=== PATIENT | female | born 1950 | race Caucasian/White ===

== ENCOUNTER 2016-11-08 07:20 | Outpatient (CLI) | payer MEDICARE, MEDICAID | END 2016-11-08 07:21 | disposition home or self-care (01) | DX: R10.13 Epigastric pain (principal) ==

== ENCOUNTER 2016-11-08 08:22 | Emergency (ER) | payer MEDICARE, MEDICAID ==
[2016-11-08] MEDS ORDERED: IBUPROFEN 600 MG TABLET PO STA (09:43)
[2016-11-08] MEDS ORDERED: ACETAMINOPHEN 325 MG TABLET PO STA (09:43)
[2016-11-08] MEDS ORDERED: ACETAMINOPHEN 325 MG TABLET PO ONE (09:51)
[2016-11-08] MEDS ORDERED: IBUPROFEN 600 MG TABLET PO ONE (09:51)
== END 2016-11-08 10:15 | disposition home or self-care (01) ==
DX: S46.011A Strain of muscle(s) and tendon(s) of the rotator cuff of right shoulder, initial encounter (principal); X50.0XXA Overexertion from strenuous movement or load, initial encounter; Y93.E9 Activity, other interior property and clothing maintenance; Y92.018 Other place in single-family (private) house as the place of occurrence of the external cause; R10.13 Epigastric pain; I10 Essential (primary) hypertension; E78.00 Pure hypercholesterolemia, unspecified; E11.9 Type 2 diabetes mellitus without complications; Z79.4 Long term (current) use of insulin; M19.90 Unspecified osteoarthritis, unspecified site; Z79.82 Long term (current) use of aspirin
CPT/HCPCS: 73030; 76700; 99283; A9270

== ENCOUNTER 2017-02-03 16:13 | Emergency (ER) | payer MEDICARE, MEDICAID ==
--- NOTE | 2017-02-03 16:36 | ED Physician Documentation ---
History of Present Illness - Stated complaint Stated Complaint: SOA - Chief complaint Chief Complaint: General - History obtained from History obtained from: Patient - History of Present Illness Timing: Today (66-year-old woman without history of DVTs/PE, or heart or lung disease had sudden onset right infrascapular pain while watching TV 2 hours ago associated sometime later with shortness of breath but now mostly better. There was no primary chest pain. Had a mild cough this morning. No pedal edema or calf pain. No recent travel.) Review of Systems Constitutional: denies: Fever, Chills Nose: reports: Rhinorrhea / runny nose, Congestion, Sinus pressure / pain Throat: denies: Dental pain / toothache, Oral lesions / sores, Sore throat Cardiac: denies: Chest pain / pressure, Palpitations, Pedal edema, Calf pain Respiratory: denies: Hemoptysis, Wheezing GI: denies: Abdominal Pain PD PAST MEDICAL HISTORY - Past Medical History Cardiovascular: Hypertension, High cholesterol Endocrine/Autoimmune: Type 2 diabetes Psych: Depression, Bipolar disorder Musculoskeletal: Osteoarthritis, Chronic back pain - Past Surgical History 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 - Present Medications Home Medications: Ambulatory Orders Medication Instructions Recorded Confirmed glipiZIDE [Glucotrol] 5 mg PO DAILY 11/10/15 02/03/17 Aspirin [Aspir-Low] 81 mg PO DAILY 11/08/16 02/03/17 Insulin Regular, Human [Humulin R] 30 units SQ DAILY 11/08/16 02/03/17 Pseudoephedrine [Sudafed] 30 mg PO DAILY 11/08/16 02/03/17 Mometasone Furoate [Nasonex] 1 spray NS BID #1 spray.pump 02/03/17 - Allergies Allergies/Adverse Reactions: Allergies Allergy/AdvReac Type Severity Reaction Status Date / Time codeine [Codeine] Allergy Nausea Verified 11/08/16 08:37 Sulfa (Sulfonamide Allergy Hives Verified 11/08/16 08:37 Antibiotics) - Social History Does the pt smoke?: No Smoking Status: Never smoker Does the pt drink ETOH?: No Does the pt have substance abuse?: Yes - Immunizations Immunizations are current?: Yes - POLST Patient has POLST: No PD ED PE NORMAL - Vitals Vital signs reviewed: Yes - General General: Alert and oriented X 3, No acute distress - HEENT HEENT: PERRL, EOMI - Neck Neck: Supple, no meningeal sign, No bony TTP - Cardiac Cardiac: RRR, No murmur - Respiratory Respiratory: No respiratory distress, Clear bilaterally, Other (Some right infrascapular muscular tenderness) - Abdomen Abdomen: Soft, Non tender - Extremities Extremities: No edema, No calf tenderness / cord, Other (Atrophic left calf from polio) - Neuro Neuro: Alert and oriented X 3, Normal speech - Psych Psych: Normal mood, Normal affect Results - Vitals Vitals: Vital Signs - 24 hr 02/03/17 16:20 Temperature 36.2 C L Heart Rate 70 Respiratory 18 Rate Blood Pressure 141/69 H O2 Saturation 100 Oxygen O2 Source Room air - EKG (time done) 1649 Rate: Rate (enter#) (58) Rhythm: NSR [place]: Normal Intervals: Normal CA QRS: Normal Ischemia: Normal ST segments Computer interpretation: Agree with computer - Labs Labs: Laboratory Tests 02/03/17 02/03/17 17:20 17:20 D-Dimer < 200.0 L Troponin I < 0.04 - Rads (name of study) 2v chest Radiology: EMP read contemporaneously (NAD) PD MEDICAL DECISION MAKING - ED course ED course: She presents with right infrascapular pain with associated shortness of breath, there is no evidence of cardiac etiology or DVT/PE. D-dimer and troponin are negative. She had multiple ancillary complaints including chronic insomnia, nasal congestion. Departure - Departure Disposition: 01 Home, Self Care Clinical Impression: Back pain Qualifiers: Back pain location: thoracic back pain Chronicity: acute Back pain laterality: right Qualified Code(s): M54.6 - Pain in thoracic spine Dyspnea Qualifiers: Dyspnea type: shortness of breath Qualified Code(s): R06.02 - Shortness of breath Condition: Good Record reviewed to determine appropriate education?: Yes Instructions: ED Dyspnea Shortness of Breath Prescriptions: Mometasone Furoate [Nasonex] 1 spray NS BID #1 spray.pump Comments: Call your doctor to arrange a follow up appointment. Make the next available appointment. In the interim return anytime if worse or if new symptoms develop. Your blood pressure was elevated today on check in to the emergency department. This does not mean that you have hypertension, it is a common phenomenon to check into the emergency department and have elevated blood pressure. I recommend that you see your primary care physician within the week to have it rechecked when you're feeling better.
--- NOTE | 2017-02-03 17:30 | XRAY Preliminary Report ---
Exam: XR Chest 2 View PA/LAT IMPRESSION: No acute intrathoracic plain film abnormality. [facility] SITE ID: [id number]
--- NOTE | 2017-02-03 17:32 | XRAY Report ---
EXAM: CHEST RADIOGRAPHY EXAM DATE: 02/03/2017 05:00 PM. CLINICAL HISTORY: Back pain. COMPARISON: None. TECHNIQUE: 2 views. FINDINGS: Lungs/Pleura: No focal opacities evident. Stable calcified nodule in the right posterior chest. No pl eural effusion. No pneumothorax. Normal volumes. Mediastinum: Heart and mediastinal contours are unremarkable. Other: None. IMPRESSION: No acute intrathoracic plain film abnormality. [facility] Referring Provider Line: [phone] SITE ID: [id number]
[2017-02-03 18:12] VITALS: BP 139/82
== END 2017-02-03 18:11 | disposition home or self-care (01) ==
LOC: ED 16:13
DX: M54.6 Pain in thoracic spine (principal); R06.02 Shortness of breath; I10 Essential (primary) hypertension; E78.00 Pure hypercholesterolemia, unspecified; E11.9 Type 2 diabetes mellitus without complications; Z79.4 Long term (current) use of insulin; M19.90 Unspecified osteoarthritis, unspecified site; Z79.82 Long term (current) use of aspirin
CPT/HCPCS: 36415; 71020; 84484; 85379; 93005; 93010; 99283; 99284

== ENCOUNTER 2017-03-28 08:12 | Outpatient (CLI) | payer MEDICARE, MEDICAID ==
--- NOTE | 2017-03-28 16:11 | MRI Report ---
EXAM: RIGHT SHOULDER MRI WITHOUT CONTRAST EXAM DATE: 03/28/2017 08:25 AM. CLINICAL HISTORY: Lifting a heavy bag. Injured right shoulder. Decreased range of motion. COMPARISON: X-ray 11/08/2016. TECHNIQUE: Multiplanar, multisequence T1-weighted and fluid-sensitive sequences of the shoulder witho ut contrast. Other: None. FINDINGS: Acromioclavicular Region: The acromion is type III The acromioclavicular joint is unremarkable. No s ubacromial/subdeltoid bursal fluid. Glenohumeral Region: No subluxation. No effusion or loose bodies. The articular cartilage is unremark able. Bone Marrow: No fracture, marrow edema or bone lesions. Labrum: The labrum is unremarkable on this nonarthrographic study. Musculature/Rotator Cuff: There is thickening and increased T2 signal in the supraspinatus tendon con sistent with tendinosis. There is an intrasubstance tear of the insertion, involving less than 50% of the thickness of the tendon. There is mild infraspinatus tendinosis. There is minimal subscapularis tendinosis. No edema or fatty atrophy. Biceps Tendon: The long head of the biceps tendon and biceps juaquin are intact. Other: The subcutaneous tissues are unremarkable. IMPRESSION: 1. Type III acromion. 2. Tendinosis and intrasubstance tearing of supraspinatus. Mild infraspinatus and subscapularis tendi nosis. [facility] MUSCULOSKELETAL RADIOLOGY SECTION Referring Provider Line: [phone] SITE ID: [id number]
== END 2017-03-28 08:13 | disposition home or self-care (01) ==
LOC: DI 08:12
PROVIDERS: ATTEND Orthopaedic Surgery
DX: M75.101 Unspecified rotator cuff tear or rupture of right shoulder, not specified as traumatic (principal); M75.81 Other shoulder lesions, right shoulder

== ENCOUNTER 2017-06-28 16:01 | Outpatient (CLI) | payer MEDICARE, MEDICAID | END 2017-06-28 16:02 | disposition home or self-care (01) | LOC: LAB 16:01 | PROVIDERS: ATTEND Nurse Practitioner | DX: E11.65 Type 2 diabetes mellitus with hyperglycemia (principal); Z79.4 Long term (current) use of insulin | CPT/HCPCS: 82043; 82570 ==

== ENCOUNTER 2017-06-28 16:08 | Outpatient (CLI) | payer MEDICARE, MEDICAID ==
--- NOTE | 2017-07-02 16:26 | Mammography Report ---
DIGITAL SCREENING MAMMOGRAM: 06/28/2017 CLINICAL INDICATION: A 66-year-old with family history of breast cancer for screening. COMPARISON: 10/2012 TECHNIQUE: Routine CC and MLO projections were obtained of the breasts. FINDINGS: The breasts demonstrate scattered fibroglandular densities bilaterally. Coarse and puncta te, typically benign calcifications are present. No suspicious masses, clustered microcalcifications , or regions of architectural distortion are identified. IMPRESSION: BENIGN FINDINGS. RECOMMENDATION: Routine annual screening unless otherwise clinically indicated. BIRADS CATEGORY 2 - BENIGN FINDINGS. STANDARD QUALIFYING STATEMENTS 1. This examination was reviewed with the aid of Computer-Aided Detection (CAD). 2. A negative or benign imaging report should not delay biopsy if clinically suspicious findings are present. Consider surgical consultation if warranted. More than 5% of cancers are not identified by i maging. 3. Dense breasts may obscure an underlying neoplasm. JOB #: [id number] EXT JOB #:[id number]
== END 2017-06-28 16:09 | disposition home or self-care (01) ==
LOC: DI 16:08
PROVIDERS: ATTEND Family Medicine
DX: Z12.31 Encounter for screening mammogram for malignant neoplasm of breast (principal); Z80.3 Family history of malignant neoplasm of breast
CPT/HCPCS: 77067

== ENCOUNTER 2018-02-28 15:02 | Emergency (ER) | payer MEDICARE, MEDICAID ==
[2018-02-28] MEDS ORDERED: oxyCOD/ACETAMIN 5 MG/325 MG TABLET PO STA (15:31)
--- NOTE | 2018-02-28 15:31 | ED Physician Documentation ---
History of Present Illness - Stated complaint Stated Complaint: R AM PX/POST SURG - Chief complaint Chief Complaint: Ext Problem - History obtained from History obtained from: Patient, Family - History of Present Illness Timing: Chronic Pain level max: 10 Pain level now: 10 Improved by: nothing Worsened by: movement, palpation - Additonal information Additional information: Patient is a 67-year-old female who had an arthroscopic surgery on her right shoulder for chronic pain on February 20. She was prescribed 30 hydrocodone pills but ran out 4 days ago. Now having increasing pain. States she called her orthopedist today but he was unavailable and was told to come here for a medication refill by his office staff. Review of Systems Ten Systems: 10 systems reviewed and negative Constitutional: denies: Fever, Chills Ears: denies: Ear pain Nose: denies: Rhinorrhea / runny nose, Congestion Throat: denies: Sore throat Cardiac: denies: Chest pain / pressure Respiratory: denies: Cough GI: denies: Nausea, Vomiting, Diarrhea Skin: denies: Rash Musculoskeletal: denies: Neck pain, Back pain Neurologic: denies: Headache PD PAST MEDICAL HISTORY - Past Medical History Past Medical History: Yes Cardiovascular: Hypertension, High cholesterol Endocrine/Autoimmune: Type 2 diabetes Psych: Depression, Bipolar disorder Musculoskeletal: Osteoarthritis, Chronic back pain - Past Surgical History Past Surgical History: Yes 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 - Present Medications Home Medications: Ambulatory Orders Medication Instructions Recorded Confirmed glipiZIDE [Glucotrol] 5 mg PO DAILY 11/10/15 02/03/17 Aspirin [Aspir-Low] 81 mg PO DAILY 11/08/16 02/03/17 Insulin Regular, Human [Humulin R] 30 units SQ DAILY 11/08/16 02/03/17 Pseudoephedrine [Sudafed] 30 mg PO DAILY 11/08/16 02/03/17 Mometasone Furoate [Nasonex] 1 spray NS BID #1 spray.pump 02/03/17 Hydrocodone/Acetaminophen 1 - 2 each PO Q6H PRN #30 tablet 02/28/18 [Hydrocodon-Acetaminophen 5-325] Ondansetron Odt [Zofran] 4 mg TL Q6H PRN #10 tablet 02/28/18 - Allergies Allergies/Adverse Reactions: Allergies Allergy/AdvReac Type Severity Reaction Status Date / Time codeine [Codeine] Allergy Nausea Verified 02/28/18 15:12 Sulfa (Sulfonamide Allergy Hives Verified 02/28/18 15:12 Antibiotics) - Social History Does the pt smoke?: No Smoking Status: Never smoker Does the pt drink ETOH?: No Does the pt have substance abuse?: Yes - Immunizations Immunizations are current?: Yes - POLST Patient has POLST: No PD ED PE NORMAL - Vitals Vital signs reviewed: Yes - General General: Alert and oriented X 3, No acute distress - HEENT HEENT: Moist mucous membranes - Neck Neck: Supple, no meningeal sign - Cardiac Cardiac: RRR, Strong equal pulses - Respiratory Respiratory: No respiratory distress, Clear bilaterally - Abdomen Abdomen: Soft, Non tender, Non distended - Derm Derm: Warm and dry - Extremities Extremities: Other (R shoulder - well healing incisions. no signs of infection.) - Neuro Neuro: Alert and oriented X 3 - Psych Psych: Normal mood, Normal affect Results - Vitals Vitals: Oxygen O2 Source Room air PD MEDICAL DECISION MAKING - ED course Complexity details: considered differential, d/w patient, d/w consultant technology ED course: Patient is a 67-year-old female with continued right shoulder pain after her arthroscopic surgery. I contacted her orthopedist, Dr. Kaur and spoke with his PA who recommends that we refill her pain medications at this time, also recommend that she continue her sling and follow-up as scheduled. She can call the office of her pain is not controlled. Patient counseled regarding signs and symptoms for which I believe and urgent re-evaluation would be necessary. Patient with good understanding of and agreement to plan and is comfortable going home at this time This document was made in part using voice recognition software. While efforts are made to proofread this document, sound alike and grammatical errors may occur. - Sepsis Event Vital Signs: Oxygen O2 Source Room air Departure - Departure Disposition: Home, Self Care Clinical Impression: Post-operative pain Condition: Good Instructions: ED Post Op Pain Follow-Up: Stephanie Lal MD [Primary Care Provider] - Within 1 week BLAIRE KAUR [Physician No Access] - Within 1 week Prescriptions: Hydrocodone/Acetaminophen [Hydrocodon-Acetaminophen 5-325] 1 - 2 each PO Q6H PRN #30 tablet PRN Reason: pain Ondansetron Odt [Zofran] 4 mg TL Q6H PRN #10 tablet PRN Reason: Nausea / Vomiting Comments: Return if you worsen. Do not drink alcohol or drive while on narcotic pain medicine. Note that many narcotic pain relievers also contain tylenol/acetaminophen. Please ensure that your total dose of acetaminophen from all sources does not exceed 3 grams (3000mg) per day. You may constipated on this medication, take a stool softener such as "Colace" twice a day while you are on it. Also recommend a oxtr-tsw-kmeifgn laxative such as senna or MiraLAX any day that you do not have a bowel movement. If you received narcotic pain medication in the emergency department, do not drive or operate machinery for the next [address] I spoke with Dr. Kaur's PA today. Discharge Date/Time: 02/28/18 16:26
[2018-02-28 16:19] VITALS: BP 152/79
== END 2018-02-28 16:26 | disposition home or self-care (01) ==
LOC: ED 15:02
DX: G89.18 Other acute postprocedural pain (principal); M79.601 Pain in right arm; I10 Essential (primary) hypertension; Z79.4 Long term (current) use of insulin; E11.9 Type 2 diabetes mellitus without complications; Z79.82 Long term (current) use of aspirin
CPT/HCPCS: 99283; A9270

== ENCOUNTER 2018-03-08 20:01 | Emergency (ER) | payer MEDICARE, MEDICAID ==
[2018-03-08] MEDS ORDERED: LORazepam 0.5 MG TABLET PO STA (20:48)
--- NOTE | 2018-03-08 20:51 | ED Physician Documentation ---
PD HPI SKIN - Stated complaint Stated Complaint: SOA/RASH - Chief complaint Chief Complaint: Wound - History obtained from History obtained from: Patient - History of Present Illness Timing - onset: Other (She has been having a lot of shoulder problems and recently had surgery. It has been causing her anxiety because the surgery was moved up. She ran out of her Ativan, her last prescription was about a month ago and needs a refill. She says when she is under a lot of stress she gets rashes and itches it herself. 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 - Present Medications Home Medications: Ambulatory Orders Medication Instructions Recorded Confirmed glipiZIDE [Glucotrol] 5 mg PO DAILY 11/10/15 02/03/17 Aspirin [Aspir-Low] 81 mg PO DAILY 11/08/16 02/03/17 Insulin Regular, Human [Humulin R] 30 units SQ DAILY 11/08/16 02/03/17 Mometasone Furoate [Nasonex] 1 spray NS BID #1 spray.pump 02/03/17 Hydrocodone/Acetaminophen 1 - 2 each PO Q6H PRN #30 tablet 02/28/18 [Hydrocodon-Acetaminophen 5-325] Ondansetron Odt [Zofran] 4 mg TL Q6H PRN #10 tablet 02/28/18 Dulaglutide [Trulicity] SQ 03/08/18 LORazepam [Lorazepam] 1 mg PO 03/08/18 Lorazepam [Ativan] 1 mg PO TID PRN #15 tablet 03/08/18 - Allergies Allergies/Adverse Reactions: Allergies Allergy/AdvReac Type Severity Reaction Status Date / Time bee venom protein (honey bee) Allergy Anaphylaxis Verified 03/08/18 20:08 codeine [Codeine] Allergy Nausea Verified 02/28/18 15:12 Sulfa (Sulfonamide Allergy Hives Verified 02/28/18 15:12 Antibiotics) - Social History Does the pt smoke?: No Smoking Status: Never smoker Does the pt drink ETOH?: No Does the pt have substance abuse?: Yes - Immunizations Immunizations are current?: Yes - POLST Patient has POLST: No PD ED PE NORMAL - Vitals Vital signs reviewed: Yes - General General: Alert and oriented X 3, No acute distress - Derm Derm: Other (I really do not see a rash, there are some excoriated areas on the inner left thigh.) - Neuro Neuro: Alert and oriented X 3, Normal speech Results - Vitals Vitals: Vital Signs - 24 hr 03/08/18 20:04 Temperature 36.9 C Heart Rate 74 Respiratory 18 Rate Blood Pressure 166/66 H O2 Saturation 100 Oxygen O2 Source Room air PD MEDICAL DECISION MAKING - Sepsis Event Vital Signs: Vital Signs - 24 hr 03/08/18 20:04 Temperature 36.9 C Heart Rate 74 Respiratory 18 Rate Blood Pressure 166/66 H O2 Saturation 100 Oxygen O2 Source Room air Departure - Departure Disposition: 01 Home, Self Care Clinical Impression: Anxiety Condition: Good Record reviewed to determine appropriate education?: Yes Instructions: ED Stress React Prescriptions: Lorazepam [Ativan] 1 mg PO TID PRN #15 tablet PRN Reason: Anxiety
[2018-03-08 21:14] VITALS: BP 151/65
== END 2018-03-08 21:13 | disposition home or self-care (01) ==
LOC: ED 20:01
DX: F41.9 Anxiety disorder, unspecified (principal)
CPT/HCPCS: 99283; A9270

== ENCOUNTER 2018-03-14 00:24 | Outpatient (CLI) | payer MEDICARE, MEDICAID | END 2018-03-14 00:25 | disposition critical access hospital (66) | LOC: EMS 00:24 | PROVIDERS: ATTEND Surgery | DX: T43.591A Poisoning by other antipsychotics and neuroleptics, accidental (unintentional), initial encounter (principal); R42 Dizziness and giddiness; R11.2 Nausea with vomiting, unspecified; R53.83 Other fatigue | CPT/HCPCS: A0425; A0429; A0999 ==

== ENCOUNTER 2018-03-14 00:45 | Emergency (ER) | payer MEDICARE, MEDICAID ==
--- NOTE | 2018-03-14 03:03 | ED Physician Documentation ---
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 These symptoms started within 20-30 minutes of taking 3 doses of hydroxyzine, which she took for generalized pruritis. She says she had a rash earlier, though this has subsequently resolved. She says she has h/o hives when she is anxious or stressed. By the time of my evaluation, she reports that her dizziness and nausea have resolved Review of Systems Constitutional: denies: Fever Cardiac: reports: Reviewed and negative Respiratory: reports: Reviewed and negative GI: reports: Nausea (resolved), Vomiting (x 1). 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 - Present Medications Home Medications: Ambulatory Orders Medication Instructions Recorded Confirmed glipiZIDE [Glucotrol] 5 mg PO DAILY 11/10/15 02/03/17 Aspirin [Aspir-Low] 81 mg PO DAILY 11/08/16 02/03/17 Insulin Regular, Human [Humulin R] 30 units SQ DAILY 11/08/16 02/03/17 Mometasone Furoate [Nasonex] 1 spray NS BID #1 spray.pump 02/03/17 Hydrocodone/Acetaminophen 1 - 2 each PO Q6H PRN #30 tablet 02/28/18 [Hydrocodon-Acetaminophen 5-325] Ondansetron Odt [Zofran] 4 mg TL Q6H PRN #10 tablet 02/28/18 Dulaglutide [Trulicity] SQ 03/08/18 LORazepam [Lorazepam] 1 mg PO 03/08/18 Lorazepam [Ativan] 1 mg PO TID PRN #15 tablet 03/08/18 hydrOXYzine pamoate [Hydroxyzine 25 mg PO Q6HR PRN #20 capsule 03/14/18 Pamoate] - Allergies Allergies/Adverse Reactions: Allergies Allergy/AdvReac Type Severity Reaction Status Date / Time bee venom protein (honey bee) Allergy Anaphylaxis Verified 03/08/18 20:08 codeine [Codeine] Allergy Nausea Verified 02/28/18 15:12 Sulfa (Sulfonamide Allergy Hives Verified 02/28/18 15:12 Antibiotics) - Social History Does the pt smoke?: No Smoking Status: Never smoker Does the pt drink ETOH?: No Does the pt have substance abuse?: Yes - Immunizations Immunizations are current?: Yes - POLST Patient has POLST: No PD ED PE NORMAL - Vitals Vital signs reviewed: Yes - General General: Alert and oriented X 3, No acute distress, Well developed/nourished - HEENT HEENT: PERRL, EOMI, Moist mucous membranes - Cardiac Cardiac: RRR, No murmur - Respiratory Respiratory: No respiratory distress, Clear bilaterally - Abdomen Abdomen: Soft, Non tender - Derm Derm: Normal color, Warm and dry, No rash - Extremities Extremities: No edema - Neuro Neuro: Alert and oriented X 3, 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 she reports having a rash earlier this evening. she has a bottle of hydroxyzine, although I note three different medications in the bottle. She says these are all hydroxyzine. I used the imprints on the medications to check using a pill-identifying program, and these are all indeed hydroxyzine. Of the three shapes/colors, the one that matches the label on the prescription bottle indicates medication that over 2 years ago. She does not recall how recently she filled the other two forms of hydroxyzine, and thus I provided a new rx so there will be no confusion as to whether the hydroxyzine has been ineffective at the prescribed dose due to being outdated. I instructed her to not take more medication than as prescribed. - Sepsis Event Vital Signs: Oxygen O2 Source Room air Departure - Departure Disposition: 01 Home, Self Care Clinical Impression: Generalized pruritus Condition: Good Instructions: ED Symptoms No Dx Prescriptions: hydrOXYzine pamoate [Hydroxyzine Pamoate] 25 mg PO Q6HR PRN #20 capsule PRN Reason: Itching Comments: All three of the different-appearing tablets in the bottle you brought to the emergency department are the same medication (hydroxyzine). As we discussed, the label of the prescription indicates outdated medication. Since you do not know if the other two prescriptions are also outdated, I have written a new prescription for hydroxyzine. If you have another episode of an itchy rash, take the medication that I have prescribed instead of any that are in the bottle you brought to the emergency department. Outdated medication loses its effectiveness over time. Discharge Date/Time: 03/14/18 03:44
[2018-03-14 03:21] VITALS: BP 126/59
== END 2018-03-14 03:44 | disposition home or self-care (01) ==
LOC: EDUNIT# → EDBD → ED 00:45
DX: L29.9 Pruritus, unspecified (principal)
CPT/HCPCS: 99283

== ENCOUNTER 2018-03-19 15:28 | Emergency (ER) | payer MEDICARE, MEDICAID ==
[2018-03-19 17:11] LABS: BILIRUBIN,URINE NEGATIVE (NEGATIVE); GLUCOSE, URINE (UA) >=1000 mg/dL (NEGATIVE); KETONES,URINE (UA) TRACE mg/dL (NEGATIVE); LEUKOCYTE ESTERASE, URINE NEGATIVE (NEGATIVE); NITRITE,URINE NEGATIVE (NEGATIVE); OCCULT BLOOD,URINE NEGATIVE (NEGATIVE); PH,URINE 5.5 PH (5.0-7.5); PROTEIN,URINE NEGATIVE (NEGATIVE); UROBILINOGEN,URINE 0.2 (NORMAL) E.U./dL (NORMAL)
[2018-03-19 17:12] LABS: CLARITY,URINE CLEAR (CLEAR)
--- NOTE | 2018-03-19 17:22 | ED Physician Documentation ---
PD HPI CHEST PAIN - Stated complaint Stated Complaint: CHEST PRESSURE/DISCOMFORT - Chief complaint Chief Complaint: Cardiac - History obtained from History obtained from: Patient - History of Present Illness Timing - onset: How many weeks ago (2) Timing - onset during: Rest, Light activity. No: Exertion, Eating Timing - duration: Weeks (2) Timing - details: Gradual onset, Waxing and waning Quality: Tightness. No: Sharp, Stabbing Location: Substernal Radiation: Neck. No: Back, Abdominal Improved by: No: Rest Worsened by: No: Exertion, Inspiration, Movement Associated symptoms: Shortness of air, Feeling faint / dizzy, General Weakness. No: Nausea, Vomiting, Palpitations Similar symptoms before: Has not had sx before Recently seen: Not recently seen Review of Systems Constitutional: denies: Fever, Chills, Myalgias Nose: denies: Rhinorrhea / runny nose, Congestion Throat: denies: Sore throat Cardiac: reports: Chest pain / pressure. denies: Palpitations, Pedal edema, Calf pain Respiratory: reports: Dyspnea, Cough. denies: Wheezing GI: denies: Abdominal Pain, Nausea, Vomiting Skin: denies: Rash, Lesions Neurologic: reports: Headache (pain at right eye medial canthus area, with some tenderness to palpate the area.) Psychiatric: reports: Depressed, Anxiety. 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 - Present Medications Home Medications: Ambulatory Orders Medication Instructions Recorded Confirmed glipiZIDE [Glucotrol] 5 mg PO DAILY 11/10/15 02/03/17 Aspirin [Aspir-Low] 81 mg PO DAILY 11/08/16 02/03/17 Insulin Regular, Human [Humulin R] 30 units SQ DAILY 11/08/16 02/03/17 Mometasone Furoate [Nasonex] 1 spray NS BID #1 spray.pump 02/03/17 Hydrocodone/Acetaminophen 1 - 2 each PO Q6H PRN #30 tablet 02/28/18 [Hydrocodon-Acetaminophen 5-325] Ondansetron Odt [Zofran] 4 mg TL Q6H PRN #10 tablet 02/28/18 Dulaglutide [Trulicity] SQ 03/08/18 LORazepam [Lorazepam] 1 mg PO 03/08/18 Lorazepam [Ativan] 1 mg PO TID PRN #15 tablet 03/08/18 hydrOXYzine pamoate [Hydroxyzine 25 mg PO Q6HR PRN #20 capsule 03/14/18 Pamoate] Albuterol Sulf [Ventolin Hfa 2 - 3 puffs INH Q4HR PRN #1 inhaler 03/19/18 Inhaler] Dexamethasone [Decadron] 4 mg PO DAILY #5 tablet 03/19/18 - Allergies Allergies/Adverse Reactions: Allergies Allergy/AdvReac Type Severity Reaction Status Date / Time bee venom protein (honey bee) Allergy Anaphylaxis Verified 03/08/18 20:08 codeine [Codeine] Allergy Nausea Verified 02/28/18 15:12 Sulfa (Sulfonamide Allergy Hives Verified 02/28/18 15:12 Antibiotics) - Social History Does the pt smoke?: No Smoking Status: Never smoker Does the pt drink ETOH?: No Does the pt have substance abuse?: Yes - Family History Family history: reports: Non contributory - Immunizations Immunizations are current?: Yes - POLST Patient has POLST: No PD ED PE NORMAL - Vitals Vital signs reviewed: Yes - General General: Alert and oriented X 3, No acute distress, Well developed/nourished - HEENT HEENT: PERRL, EOMI, Moist mucous membranes, Pharynx benign, Other (fundi normal and no discharge of eye. Flourescein staining is normal. ) - Neck Neck: Supple, no meningeal sign, No adenopathy - Cardiac Cardiac: RRR, No murmur - Respiratory Respiratory: No: Clear bilaterally (faint exp wheezing. no coarse sounds. ) - Abdomen Abdomen: Normal bowel sounds, Soft - Back Back: No CVA TTP - Derm Derm: Normal color, Warm and dry, No rash - Extremities Extremities: No tenderness to palpate, Normal ROM s pain, No edema, No calf tenderness / cord - Neuro Neuro: Alert and oriented X 3, No motor deficit, Normal speech - Psych Psych: Normal affect. No: Normal mood (somewhat sad and anxious about feeling ill. ) Results - Vitals Vitals: Vital Signs - 24 hr 07/17/18 07/17/18 07/17/18 15:42 18:09 18:16 Temperature 36.3 C L Heart Rate 92 78 75 Respiratory 18 20 16 Rate Blood Pressure 125/79 146/71 H O2 Saturation 99 100 03/19/18 19:58 Temperature Heart Rate 80 Respiratory 17 Rate Blood Pressure 138/72 H O2 Saturation 100 Oxygen O2 Source Room air - EKG (time done) 15:44 Rate: Rate (enter#) (89) Rhythm: NSR [place]: Normal Intervals: Normal [place] QRS: Normal Ischemia: Normal ST segments. No: ST elevation c/w ischemia, ST depression - Labs Labs: Laboratory Tests 03/19/18 03/19/18 03/19/18 17:03 18:09 18:09 WBC 5.8 RBC 4.62 Hgb 14.3 Hct 42.6 MCV 92.1 MCH 31.0 MCHC 33.7 RDW 13.5 Plt Count 339 MPV 8.1 Neut # (Auto) 2.7 Lymph # (Auto) 2.1 [place] # (Auto) 0.5 Eos # (Auto) 0.4 Baso # (Auto) 0.1 Absolute Nucleated RBC 0.00 Nucleated RBC % 0.0 Sodium 136 Potassium 3.2 L Chloride 101 Carbon Dioxide 28 Anion Gap 7.0 BUN 11 Creatinine 0.5 Estimated GFR (MDRD) 123 Glucose 181 H Calcium 9.0 Magnesium 2.0 Total Bilirubin 0.8 AST 15 ALT 11 Alkaline Phosphatase 53 Troponin I B-Natriuretic Peptide Total Protein 6.4 L Albumin 3.6 Globulin 2.8 Albumin/Globulin Ratio 1.3 Lipase 24 Urine Color YELLOW Urine Clarity CLEAR Urine pH 5.5 Ur Specific [place] 1.025 Urine Protein NEGATIVE Urine Glucose (UA) >=1000 H Urine Ketones TRACE Urine Occult Blood NEGATIVE Urine Nitrite NEGATIVE Urine Bilirubin NEGATIVE Urine Urobilinogen 0.2 (NORMAL) Ur Leukocyte Esterase NEGATIVE Ur Microscopic Review NOT INDICATED Urine Culture Comments NOT INDICATED 03/19/18 03/19/18 18:09 18:09 WBC RBC Hgb Hct MCV MCH MCHC RDW Plt Count MPV Neut # (Auto) Lymph # (Auto) [place] # (Auto) Eos # (Auto) Baso # (Auto) Absolute Nucleated RBC Nucleated RBC % Sodium Potassium Chloride Carbon Dioxide Anion Gap BUN Creatinine Estimated GFR (MDRD) Glucose Calcium Magnesium Total Bilirubin AST ALT Alkaline Phosphatase Troponin I < 0.04 B-Natriuretic Peptide 10 Total Protein Albumin Globulin Albumin/Globulin Ratio Lipase Urine Color Urine Clarity Urine pH Ur Specific [place] Urine Protein Urine Glucose (UA) Urine Ketones Urine Occult Blood Urine Nitrite Urine Bilirubin Urine Urobilinogen Ur Leukocyte Esterase Ur Microscopic Review Urine Culture Comments - Rads (name of study) chest xray Radiology: Prelim report reviewed (normal), EMP read contemporaneously PD MEDICAL DECISION MAKING - ED course Complexity details: considered differential (symptoms of chest pressure/pain, and also some headache behind left eye, with eye hurting to press medial canthus area. Eye iteslf looks okay. CXR/ECG/labs are good. I think her chest pressure and dyspnea are bronchial. ), d/w patient - Sepsis Event Vital Signs: Vital Signs - 24 hr 03/19/18 03/19/18 03/19/18 15:42 18:09 18:16 Temperature 36.3 C L Heart Rate 92 78 75 Respiratory 18 20 16 Rate Blood Pressure 125/79 146/71 H O2 Saturation 99 100 03/19/18 19:58 Temperature Heart Rate 80 Respiratory 17 Rate Blood Pressure 138/72 H O2 Saturation 100 Oxygen O2 Source Room air Departure - Departure Disposition: 01 Home, Self Care Clinical Impression: Chest pressure Dyspnea Qualifiers: Dyspnea type: shortness of breath Qualified Code(s): R06.02 - Shortness of breath Condition: Stable Record reviewed to determine appropriate education?: Yes Instructions: ED Dyspnea Shortness of Breath Follow-Up: Stephanie Lal MD [Primary Care Provider] - Prescriptions: Albuterol Sulf [Ventolin Hfa Inhaler] 2 - 3 puffs INH Q4HR PRN #1 inhaler PRN Reason: Shortness Of Air/Wheezing Dexamethasone [Decadron] 4 mg PO DAILY #5 tablet Comments: There is no signs of heart attack or heart failure. Your chest x-ray does not show any signs of pneumonia nor fluid in the lung. Your blood tests appear normal. I do not see any life-threatening causes at this point. You have had a lot of mucus and congestion so I think your trouble breathing is from bronchial cause. Try the albuterol inhaler 2 3 puffs 4 times a day for the next 7-10 days and Decadron steroid to decrease bronchial inflammation. See how you do over the next few days. Tylenol or ibuprofen if needed for headache or pains. Discharge Date/Time: 03/19/18 20:28
[2018-03-19] MEDS ORDERED: ALBUTEROL NEB 2.5 MG/3 ML INH STA (17:52)
[2018-03-19 18:14] LABS: BASOPHILS # (AUTO) 0.1 10^3/uL (0.0-0.1); EOSINOPHILS # (AUTO) 0.4 10^3/uL (0.0-0.7); EOSINOPHILS % (AUTO) 6.7 %; HGB - HEMOGLOBIN 14.3 g/dL (12.0-16.0); LYMPHOCYTES # (AUTO) 2.1 10^3/uL (1.5-3.5); MEAN CORPUSCULAR HGB CONC 33.7 g/dL (32.0-36.0); MEAN CORPUSCULAR VOLUME 92.1 fL (81.0-99.0); MEAN PLATELET VOLUME 8.1 fL (7.9-10.8); MONOCYTES # (AUTO) 0.5 10^3/uL (0.0-1.0); MONOCYTES % (AUTO) 8.9 %; NEUTROPHILS # (AUTO) 2.7 10^3/uL (1.5-6.6); NEUTROPHILS % (AUTO) 47.4 %; PLT - PLATELET COUNT 339 10^3/uL (130-450); RED BLOOD COUNT 4.62 10^6/uL (4.20-5.40); RED CELL DISTRIBUTION WIDTH 13.5 % (12.0-15.0); WHITE BLOOD COUNT 5.8 x10^3/uL (4.8-10.8)
[2018-03-19 18:27] LABS: ALBUMIN 3.6 g/dL (3.2-5.5); ALBUMIN/GLOBULIN RATIO 1.3 (1.0-2.2); BILIRUBIN,TOTAL 0.8 mg/dL (0.2-1.0); CREATININE 0.5 mg/dL (0.4-1.0); TOTAL PROTEIN 6.4 g/dL (6.7-8.2)
--- NOTE | 2018-03-19 18:59 | XRAY Report ---
Procedure Date: 03/19/2018 Accession Number: [id number] / [id number] Procedure: XR - Chest 2 View X-Ray CPT Code: 15600 FULL RESULT: EXAM: CHEST RADIOGRAPHY EXAM DATE: 03/19/2018 06:40 PM. CLINICAL HISTORY: Chest pain left sided. COMPARISON: CHEST 2 VIEW PA/LAT 02/03/2017. TECHNIQUE: 2 views. FINDINGS: Lungs/Pleura: There is a dense nodule in the right mid lung consistent with a calcified granuloma. Lung volumes are normal. No acute consolidation or edema. Negative for pleural effusion and pneumothorax. Mediastinum: Heart size is normal. Trachea is midline. Other: None. IMPRESSION: 1. Old granulomatous disease. No acute cardiopulmonary abnormality. RADIA
[2018-03-19] MEDS ORDERED: DEXAMETHASONE 10 MG/ML VIAL IVP STA (19:40)
[2018-03-19] MEDS ORDERED: KETOROLAC 60 MG/2 ML VIAL IVP STA (19:41)
[2018-03-19 19:59] VITALS: BP 138/72
[2018-03-19] MEDS ORDERED: DEXAMETHASONE 10 MG/ML VIAL PO STA (20:05)
[2018-03-19] MEDS ORDERED: PROPARACAINE 0.5% OPHTH DROPS 15 ML RIGHTEYE STA (20:05)
[2018-03-19] MEDS ORDERED: HYDROcod/ACETAM 5/325 MG TABLET PO STA (20:06)
[2018-03-19] MEDS ORDERED: MAG HYDROX/AL HYDROX/SIMETH 30 ML UDC PO STA (20:06)
== END 2018-03-19 20:28 | disposition home or self-care (01) ==
LOC: ED 15:28
DX: R07.89 Other chest pain (principal); R06.02 Shortness of breath; I10 Essential (primary) hypertension; E11.9 Type 2 diabetes mellitus without complications; Z79.82 Long term (current) use of aspirin; Z79.4 Long term (current) use of insulin
CPT/HCPCS: 71046; 80053; 81003; 83690; 83735; 83880; 84484; 85025; 93005; 94640; 99283; A9270; J3490; 36415; 81001; 87086

== ENCOUNTER 2018-06-10 14:21 | Emergency (ER) | payer MEDICARE, MEDICAID ==
[2018-06-10 14:30] VITALS: BP 146/94
[2018-06-10] MEDS ORDERED: AMOXICILLIN 250 MG CAPSULE PO STA (15:15)
[2018-06-10] MEDS ORDERED: LIDOCAINE VISCOUS 2% 15 ML UDC MM STA (15:15)
--- NOTE | 2018-06-10 15:19 | ED Physician Documentation ---
History of Present Illness - Stated complaint Stated Complaint: SINUS PX, JAW PX - Chief complaint Chief Complaint: Heent - Additonal information Additional information: hx from pt to ER 2 CC 1) sinus pressure and drainage with subsequent cough for several weeks 2) severe pain and burning to lower jaw / teeth also ongoing chest pain which, per pt, has already been worked up and is not cardiac and she is ending a GI test Review of Systems Constitutional: denies: Fever, Chills Nose: reports: Congestion, Sinus pressure / pain Throat: reports: Dental pain / toothache Cardiac: reports: Chest pain / pressure (states has been worked up for cardiac and is now scheduled for a GI test - not new - not reason for ER visit - per pt already evaluated) PD PAST MEDICAL HISTORY - Past Medical History Past Medical History: Yes Cardiovascular: Hypertension, High cholesterol Endocrine/Autoimmune: Type 2 diabetes Psych: Depression, Anxiety, Bipolar disorder Musculoskeletal: Osteoarthritis, Chronic back pain - Past Surgical History Past Surgical History: Yes 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 - Present Medications Home Medications: Ambulatory Orders Medication Instructions Recorded Confirmed glipiZIDE [Glucotrol] 5 mg PO DAILY 11/10/15 02/03/17 Aspirin [Aspir-Low] 81 mg PO DAILY 11/08/16 02/03/17 Insulin Regular, Human [Humulin R] 30 units SQ DAILY 11/08/16 02/03/17 Mometasone Furoate [Nasonex] 1 spray NS BID #1 spray.pump 02/03/17 Hydrocodone/Acetaminophen 1 - 2 each PO Q6H PRN #30 tablet 02/28/18 [Hydrocodon-Acetaminophen 5-325] Ondansetron Odt [Zofran] 4 mg TL Q6H PRN #10 tablet 02/28/18 Dulaglutide [Trulicity] SQ 03/08/18 LORazepam [Lorazepam] 1 mg PO 03/08/18 Lorazepam [Ativan] 1 mg PO TID PRN #15 tablet 03/08/18 hydrOXYzine pamoate [Hydroxyzine 25 mg PO Q6HR PRN #20 capsule 03/14/18 Pamoate] Albuterol Sulf [Ventolin Hfa 2 - 3 puffs INH Q4HR PRN #1 inhaler 03/19/18 Inhaler] Dexamethasone [Decadron] 4 mg PO DAILY #5 tablet 03/19/18 Amoxicillin 500 mg PO Q8H #30 capsule 06/10/18 Lidocaine HCl [Lidocaine HCl 1 applic OT Q1H PRN #15 ml 06/10/18 Viscous] Oxymetazoline HCl [Afrin] 2 spray NS BID PRN #1 bottle 06/10/18 - Allergies Allergies/Adverse Reactions: Allergies Allergy/AdvReac Type Severity Reaction Status Date / Time bee venom protein (honey bee) Allergy Anaphylaxis Verified 03/08/18 20:08 codeine [Codeine] Allergy Nausea Verified 02/28/18 15:12 Sulfa (Sulfonamide Allergy Hives Verified 02/28/18 15:12 Antibiotics) - Social History Does the pt smoke?: No Smoking Status: Never smoker Does the pt drink ETOH?: No Does the pt have substance abuse?: Yes - Immunizations Immunizations are current?: Yes - POLST Patient has POLST: No PD ED PE NORMAL - Vitals Vital signs reviewed: Yes - HEENT HEENT: Ears normal, Moist mucous membranes, Other (diffuse sinus TTP but no focal swelling). No: Dentition benign (all upper teeth missing, lower incisors with severe gum recession and some decay of visible roots, and a small erythematous swelling without head or drainage, no trismus, no ludwigs) - Cardiac Cardiac: RRR - Respiratory Respiratory: No respiratory distress, Clear bilaterally Results - Vitals Vitals: Vital Signs - 24 hr 06/10/18 14:27 Temperature 35.9 C L Heart Rate 85 Respiratory 16 Rate Blood Pressure 146/94 H O2 Saturation 100 Oxygen O2 Source Room air PD MEDICAL DECISION MAKING - Sepsis Event Vital Signs: Vital Signs - 24 hr 06/10/18 14:27 Temperature 35.9 C L Heart Rate 85 Respiratory 16 Rate Blood Pressure 146/94 H O2 Saturation 100 Oxygen O2 Source Room air Departure - Departure Disposition: 01 Home, Self Care Clinical Impression: Dental abscess Sinusitis Qualifiers: Sinusitis location: unspecified location Chronicity: subacute Qualified Code(s): J01.90 - Acute sinusitis, unspecified Condition: Good Instructions: ED Abscess Dental, ED Sinusitis No Abx Follow-Up: Stephanie Lal MD [Primary Care Provider] - Prescriptions: Amoxicillin 500 mg PO Q8H #30 capsule Lidocaine HCl [Lidocaine HCl Viscous] 1 applic OT Q1H PRN #15 ml PRN Reason: dental pain Oxymetazoline HCl [Afrin] 2 spray NS BID PRN #1 bottle PRN Reason: nasal sinus ear congestion Comments: The sinus infection is likely viral. Continue your sudafed, add the afrin and consider using a sinus irrigation system like the clark pot The antibiotic if for your dental infection - this is only a short term fix and you need to follow up with your dentist for further care. May also apply the lidocaine as needed You advised me that your chest pains have already been evaluated and are not cardiac. Follow up as planned for your GI procedure Discharge Date/Time: 06/10/18 15:29
== END 2018-06-10 15:29 | disposition home or self-care (01) ==
LOC: ED 14:21
DX: J01.90 Acute sinusitis, unspecified (principal); K04.7 Periapical abscess without sinus; I10 Essential (primary) hypertension; E11.9 Type 2 diabetes mellitus without complications; Z79.4 Long term (current) use of insulin; Z79.82 Long term (current) use of aspirin
CPT/HCPCS: 99283; A9270

== ENCOUNTER 2019-05-28 17:11 | Emergency (ER) | payer MEDICARE, MEDICAID ==
[2019-05-28] MEDS ORDERED: LORazepam 1 MG TABLET PO STA (17:38)
--- NOTE | 2019-05-28 17:41 | ED Physician Documentation ---
History of Present Illness - Stated complaint Stated Complaint: SPASMS - Chief complaint Chief Complaint: General - History obtained from History obtained from: Patient - History of Present Illness Timing: Other (There is an more acutely over the last 2 weeks she has had spasms that seem to be focused in the right upper extremity. She does not lose consciousness and there are not associated with headaches. It often will go into a full body spasm, again without loss of consciousness was associated with some decreased appetite and weight loss. No history of seizure activity. Her physical therapist accompanies her today and notes some weakness in the right upper extremity which is new in that timeframe.) Review of Systems Ten Systems: 10 systems reviewed and negative Constitutional: denies: Fever, Chills Throat: denies: Dental pain / toothache, Sore throat Cardiac: denies: Chest pain / pressure, Palpitations Respiratory: denies: Dyspnea PD PAST MEDICAL HISTORY - Past Medical History Cardiovascular: Hypertension, High cholesterol Endocrine/Autoimmune: Type 2 diabetes Psych: Depression, Anxiety, Bipolar disorder Musculoskeletal: Osteoarthritis, Chronic back pain - Past Surgical History Past Surgical History: Yes 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 - Present Medications Home Medications: Ambulatory Orders Medication Instructions Recorded Confirmed glipiZIDE [Glucotrol] 5 mg PO DAILY 11/10/15 02/03/17 Aspirin [Aspir-Low] 81 mg PO DAILY 11/08/16 02/03/17 Insulin Regular, Human [Humulin R] 30 units SQ DAILY 11/08/16 02/03/17 Mometasone Furoate [Nasonex] 1 spray NS BID #1 spray.pump 02/03/17 Hydrocodone/Acetaminophen 1 - 2 each PO Q6H PRN #30 tablet 02/28/18 [Hydrocodon-Acetaminophen 5-325] Ondansetron Odt [Zofran] 4 mg TL Q6H PRN #10 tablet 02/28/18 Dulaglutide [Trulicity] SQ 03/08/18 LORazepam [Lorazepam] 1 mg PO 03/08/18 Lorazepam [Ativan] 1 mg PO TID PRN #15 tablet 03/08/18 hydrOXYzine pamoate [Hydroxyzine 25 mg PO Q6HR PRN #20 capsule 03/14/18 Pamoate] Albuterol Sulf [Ventolin Hfa 2 - 3 puffs INH Q4HR PRN #1 inhaler 03/19/18 Inhaler] dexAMETHasone [Decadron] 4 mg PO DAILY #5 tablet 03/19/18 Amoxicillin 500 mg PO Q8H #30 capsule 06/10/18 Lidocaine HCl [Lidocaine HCl 1 applic OT Q1H PRN #15 ml 06/10/18 Viscous] Oxymetazoline HCl [Afrin] 2 spray NS BID PRN #1 bottle 06/10/18 Amoxicillin 500 mg PO TID #30 capsule 05/28/19 Lidocaine HCl [Lidocaine HCl 1 ml MM Q4H PRN #30 ml 05/28/19 Viscous] Lorazepam [Ativan] 1 mg PO TID PRN #15 tablet 05/28/19 - Allergies Allergies/Adverse Reactions: Allergies Allergy/AdvReac Type Severity Reaction Status Date / Time bee venom protein (honey bee) Allergy Anaphylaxis Verified 05/28/19 17:16 codeine [Codeine] Allergy Nausea Verified 05/28/19 17:16 Sulfa (Sulfonamide Allergy Hives Verified 05/28/19 17:16 Antibiotics) - Social History Does the pt smoke?: No Smoking Status: Never smoker Does the pt drink ETOH?: No Does the pt have substance abuse?: Yes - Immunizations Immunizations are current?: Yes - POLST Patient has POLST: No PD ED PE NORMAL - Vitals Vital signs reviewed: Yes - General General: Alert and oriented X 3, Other (Occasional spasmodic activity that looks like a whole body tic more than anything else. She maintains conversant throughout. Some other spasmodic activity in the right upper extremity.) - HEENT HEENT: PERRL, EOMI - Neck Neck: Supple, no meningeal sign, No bony TTP - Cardiac Cardiac: RRR, No murmur - Respiratory Respiratory: No respiratory distress, Clear bilaterally - Abdomen Abdomen: Non tender - Extremities Extremities: No deformity, No tenderness to palpate, No edema, No calf tenderness / cord - Neuro Neuro: Alert and oriented X 3, No motor deficit, No sensory deficit, Normal speech Eye Opening: Spontaneous Motor: Obeys Commands Verbal: Oriented GCS Score: 15 Results - Vitals Vitals: Vital Signs - 24 hr 05/28/19 05/28/19 05/28/19 17:16 17:19 19:41 Temperature 36.7 C 36.7 C 36.5 C Heart Rate 81 81 68 Respiratory 18 18 16 Rate Blood Pressure 112/77 112/77 156/67 H O2 Saturation 99 99 100 Oxygen O2 Source Room air - Labs Labs: Laboratory Tests 05/28/19 05/28/19 05/28/19 17:55 17:55 17:55 WBC 9.7 RBC 4.79 Hgb 15.0 Hct 43.6 MCV 91.0 MCH 31.3 H MCHC 34.4 RDW 12.2 Plt Count 297 MPV 10.7 Neut # (Auto) 5.4 Lymph # (Auto) 3.5 [place] # (Auto) 0.7 Eos # (Auto) 0.0 Baso # (Auto) 0.0 Absolute Nucleated RBC 0.00 Nucleated RBC % 0.0 Sodium 137 Potassium 3.8 Chloride 98 L Carbon Dioxide 30 Anion Gap 9.0 BUN 14 Creatinine 0.7 Estimated GFR (MDRD) 83 L Glucose 269 H Calcium 8.9 Total Bilirubin 1.1 H AST 15 ALT 17 Alkaline Phosphatase 51 Total Protein 7.1 Albumin 3.9 Globulin 3.2 Albumin/Globulin Ratio 1.2 Lipase 35 TSH 0.77 - Rads (name of study) CTH w/wo Radiology: EMP read contemporaneously (neg) PD MEDICAL DECISION MAKING - ED course ED course: She has right upper extremity spasms, they have been progressive. She has an appointment with a neurologist. Focal seizure was considered, seems unlikely and cranial imaging was negative with and without contrast. It was all much better after lorazepam. She was given a copy of her diagnostics to aid in follow-up. Also she had an ancillary complaint of a toothache, lower right. There is a small gingival abscess. She wanted some lidocaine and antibiotics. Departure - Departure Disposition: 01 Home, Self Care Clinical Impression: Spasm, Shaking, Toothache Condition: Good Record reviewed to determine appropriate education?: Yes Instructions: ED Abscess Tooth, ED Spasm Muscle Prescriptions: Amoxicillin 500 mg PO TID #30 capsule Lidocaine HCl [Lidocaine HCl Viscous] 1 ml MM Q4H PRN #30 ml PRN Reason: dental pain Lorazepam [Ativan] 1 mg PO TID PRN #15 tablet PRN Reason: Anxiety Comments: Follow-up with a neurologist on Sunday as scheduled. Return for new worsening symptoms. Take the copy of the labs and CT read with you for that appointment. Also It is very important that you follow-up with a dentist. When it comes to dental problems like yours, the emergency department can only offer a short-term solution to your long-term problem. A couple of low cost options for dental care include: [facility] in [place], calls [phone] for an appointment Or [facility] in [place], call [phone] for an appointment.
[2019-05-28] MEDS ORDERED: IOVERSOL 320 100 ML VIAL IVP ONE ×2 (18:01→19:13)
[2019-05-28 18:11] LABS: BASOPHILS % (AUTO) 0.4 %; LYMPHOCYTES # (AUTO) 3.5 10^3/uL (1.5-3.5); LYMPHOCYTES % (AUTO) 36.4 %; MEAN CORPUSCULAR HEMOGLOBIN 31.3 pg (27.0-31.0); MEAN CORPUSCULAR HGB CONC 34.4 g/dL (32.0-36.0); MEAN PLATELET VOLUME 10.7 fL (7.9-10.8); MONOCYTES # (AUTO) 0.7 10^3/uL (0.0-1.0); MONOCYTES % (AUTO) 7.5 %; NEUTROPHILS # (AUTO) 5.4 10^3/uL (1.5-6.6); NEUTROPHILS % (AUTO) 55.3 %; PLT - PLATELET COUNT 297 10^3/uL (130-450); RED BLOOD COUNT 4.79 10^6/uL (4.20-5.40); RED CELL DISTRIBUTION WIDTH 12.2 % (12.0-15.0); WHITE BLOOD COUNT 9.7 x10^3/uL (4.8-10.8)
[2019-05-28 18:26] LABS: ALBUMIN 3.9 g/dL (3.2-5.5); ALBUMIN/GLOBULIN RATIO 1.2 (1.0-2.2); BILIRUBIN,TOTAL 1.1 mg/dL (0.2-1.0); CALCIUM 8.9 mg/dL (8.5-10.3); CREATININE 0.7 mg/dL (0.4-1.0); TOTAL PROTEIN 7.1 g/dL (6.7-8.2)
[2019-05-28] MEDS ORDERED: ONDANSETRON 4 MG/2 ML VIAL IVP STA (18:29)
--- NOTE | 2019-05-28 19:38 | CT Report ---
Reason: R arm spasms, poss focal szs Procedure Date: 05/28/2019 Accession Number: [id number] / [id number] Procedure: CT - HEAD W/WO CPT Code: FULL RESULT: EXAM: CT HEAD WITHOUT AND WITH CONTRAST EXAM DATE: 05/28/2019 07:08 PM. CLINICAL HISTORY: 68-year-old female. R arm spasms, poss. Focal szs. COMPARISON: CT head 04/30/2010. TECHNIQUE: Multiaxial CT images were obtained from the foramen magnum to the vertex without and with intravenous contrast. Reformats: Sagittal and coronal. IV contrast: 50 mL Optiray 320. In accordance with CT protocol optimization, one or more of the following dose reduction techniques were utilized for this exam: automated exposure control, adjustment of mA and/or KV based on patient size, or use of iterative reconstructive technique. FINDINGS: Parenchyma: No intraparenchymal hemorrhage. No evidence of mass, midline shift, or CT findings of infarction. Fuentes-white differentiation is distinct. No abnormal enhancement on the postcontrast CT head. Extraaxial Spaces: Normal for age. No subdural or epidural collections identified. Ventricles: Normal in size and position. Sinuses and Orbits: Imaged paranasal sinuses, orbits, and mastoids show no significant abnormality. Bones: No evidence of fracture or calvarial defect. Other: None. IMPRESSION: 1. No CT evidence of acute intracranial abnormality, specifically no CT evidence of acute infarct, intracranial hemorrhage, mass effect, midline shift, or hydrocephalus. 2. No abnormal enhancement on the postcontrast images. RAD[facility]
[2019-05-28 19:42] VITALS: BP 156/67
[2019-05-28] MEDS ORDERED: AMOXICILLIN 250 MG CAPSULE PO STA (19:46)
== END 2019-05-28 19:58 | disposition home or self-care (01) ==
LOC: ED 17:11
DX: M62.838 Other muscle spasm (principal); G25.89 Other specified extrapyramidal and movement disorders; K05.319 Chronic periodontitis, localized, unspecified severity; I10 Essential (primary) hypertension; E11.9 Type 2 diabetes mellitus without complications; Z79.4 Long term (current) use of insulin; Z79.82 Long term (current) use of aspirin
CPT/HCPCS: 36415; 70470; 83690; 96374; 99284; A9270; J8499; Q9967; 80053; 84443; 85025

== ENCOUNTER 2022-09-06 20:26 | Emergency (ER) | payer MEDICARE, MEDICAID ==
[2022-09-06 20:36] VITALS: BP 163/72
[2022-09-06] MEDS ORDERED: AMOX/CLAV 875 MG/125 MG TABLET PO STA (21:21)
--- NOTE | 2022-09-06 21:22 | ED Physician Documentation ---
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 No fevers. She has had some vomiting with this but declines nausea medicine as she has nausea medicine at home. Review of Systems Constitutional: denies: Fever, Chills Ears: reports: Ear pain Nose: reports: Rhinorrhea / runny nose, Congestion, Sinus pressure / pain. 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 - Present Medications Home Medications: Ambulatory Orders Medication Instructions Recorded Confirmed glipiZIDE [Glucotrol] 5 mg PO DAILY 11/10/15 02/03/17 Aspirin [Aspir-Low] 81 mg PO DAILY 11/08/16 02/03/17 Insulin Regular, Human [Humulin R] 30 units SQ DAILY 11/08/16 02/03/17 Mometasone Furoate [Nasonex] 1 spray NS BID #1 spray.pump 02/03/17 Hydrocodone/Acetaminophen 1 - 2 each PO Q6H PRN #30 tablet 02/28/18 [Hydrocodon-Acetaminophen 5-325] Ondansetron Odt [Zofran] 4 mg TL Q6H PRN #10 tablet 02/28/18 Dulaglutide [Trulicity] SQ 03/08/18 LORazepam [Lorazepam] 1 mg PO 03/08/18 Lorazepam [Ativan] 1 mg PO TID PRN #15 tablet 03/08/18 hydrOXYzine pamoate [Hydroxyzine 25 mg PO Q6HR PRN #20 capsule 03/14/18 Pamoate] Albuterol Sulf [Ventolin Hfa 2 - 3 puffs INH Q4HR PRN #1 inhaler 03/19/18 Inhaler] dexAMETHasone [Decadron] 4 mg PO DAILY #5 tablet 03/19/18 Amoxicillin 500 mg PO Q8H #30 capsule 06/10/18 Oxymetazoline HCl [Afrin] 2 spray NS BID PRN #1 bottle 06/10/18 lidocaine HCL [Lidocaine HCl 1 applic OT Q1H PRN #15 ml 06/10/18 Viscous] Amoxicillin 500 mg PO TID #30 capsule 05/28/19 Lorazepam [Ativan] 1 mg PO TID PRN #15 tablet 05/28/19 lidocaine HCL [Lidocaine HCl 1 ml MM Q4H PRN #30 ml 05/28/19 Viscous] Amox/Clav 875/125 [Augmentin] 1 each PO Q12H #20 tablet 09/06/22 Fluticasone [Flonase] 1 sprays YANA BID #16 gm 09/06/22 - Allergies Allergies/Adverse Reactions: Allergies Allergy/AdvReac Type Severity Reaction Status Date / Time bee venom protein (honey bee) Allergy Anaphylaxis Verified 09/06/22 20:37 codeine [Codeine] Allergy Nausea Verified 09/06/22 20:37 Sulfa (Sulfonamide Allergy Hives Verified 09/06/22 20:37 Antibiotics) - Social History Does the pt smoke?: No Smoking Status: Never smoker Does the pt drink ETOH?: No Does the pt have substance abuse?: Yes - Immunizations Immunizations are current?: Yes - POLST Patient has POLST: No PD ED PE NORMAL - Vitals Vital signs reviewed: Yes - General General: Alert and oriented X 3, No acute distress - HEENT HEENT: PERRL, EOMI, Other (TMs are normal, she is tender to the right greater than left maxillary sinus.) - Neck Neck: Supple, no meningeal sign, No bony TTP - Cardiac Cardiac: RRR, No murmur - Neuro Neuro: Alert and oriented X 3, Normal speech - Psych Psych: Normal mood, Normal affect Results - Vitals Vitals: Vital Signs - 24 hr 09/06/22 20:30 Temperature 36.3 C L Heart Rate 83 Respiratory 22 Rate Blood Pressure 163/72 H O2 Saturation 98 Oxygen O2 Source Room air PD Medical Decision Making - ED course ED course: 71-year-old woman with acute sinusitis, comorbidities including diabetes and the timeframe would suggest that a trial of antibiotics is reasonable. She declined pain or nausea medicine. Departure - Departure Disposition: Home, Self Care Clinical Impression: Sinusitis Condition: Good Record reviewed to determine appropriate education?: Yes Instructions: ED Sinusitis Abx Tx Prescriptions: Amox/Clav 875/125 [Augmentin] 1 each PO Q12H #20 tablet Fluticasone [Flonase] 1 sprays YANA BID #16 gm Comments: Recheck with your doctor in 1 week. Return for new or worsening symptoms.
== END 2022-09-06 21:30 | disposition home or self-care (01) ==
LOC: ED 20:26
DX: J32.9 Chronic sinusitis, unspecified (principal); E11.9 Type 2 diabetes mellitus without complications; Z79.84 Long term (current) use of oral hypoglycemic drugs
CPT/HCPCS: 99282; 99283; A9270

== ENCOUNTER 2022-09-27 17:36 | Emergency (ER) | payer MEDICARE, MEDICAID ==
[2022-09-27 17:43] VITALS: BP 150/70
--- NOTE | 2022-09-27 18:22 | ED Physician Documentation ---
History of Present Illness - Stated complaint Stated Complaint: FOOT PAIN - Chief complaint Chief Complaint: Ext Problem - History obtained from History obtained from: Patient - Additonal information Additional information: She has had a painful rash on her feet left worse than right for basically since she was 20. It flares up about every 6 months and she is undergoing a flare right now. In the past she has had numerous diagnoses, but she knows that a cream that starts with "F" works well for her. 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 - Present Medications Home Medications: Ambulatory Orders Medication Instructions Recorded Confirmed glipiZIDE [Glucotrol] 5 mg PO DAILY 11/10/15 02/03/17 Aspirin [Aspir-Low] 81 mg PO DAILY 11/08/16 02/03/17 Insulin Regular, Human [Humulin R] 30 units SQ DAILY 11/08/16 02/03/17 Mometasone Furoate [Nasonex] 1 spray NS BID #1 spray.pump 02/03/17 Hydrocodone/Acetaminophen 1 - 2 each PO Q6H PRN #30 tablet 02/28/18 [Hydrocodon-Acetaminophen 5-325] Ondansetron Odt [Zofran] 4 mg TL Q6H PRN #10 tablet 02/28/18 Dulaglutide [Trulicity] SQ 03/08/18 LORazepam [Lorazepam] 1 mg PO 03/08/18 Lorazepam [Ativan] 1 mg PO TID PRN #15 tablet 03/08/18 hydrOXYzine pamoate [Hydroxyzine 25 mg PO Q6HR PRN #20 capsule 03/14/18 Pamoate] Albuterol Sulf [Ventolin Hfa 2 - 3 puffs INH Q4HR PRN #1 inhaler 03/19/18 Inhaler] dexAMETHasone [Decadron] 4 mg PO DAILY #5 tablet 03/19/18 Amoxicillin 500 mg PO Q8H #30 capsule 06/10/18 Oxymetazoline HCl [Afrin] 2 spray NS BID PRN #1 bottle 06/10/18 lidocaine HCL [Lidocaine HCl 1 applic OT Q1H PRN #15 ml 06/10/18 Viscous] Amoxicillin 500 mg PO TID #30 capsule 05/28/19 Lorazepam [Ativan] 1 mg PO TID PRN #15 tablet 05/28/19 lidocaine HCL [Lidocaine HCl 1 ml MM Q4H PRN #30 ml 05/28/19 Viscous] Amox/Clav 875/125 [Augmentin] 1 each PO Q12H #20 tablet 09/06/22 Fluticasone [Flonase] 1 sprays YANA BID #16 gm 09/06/22 Fluocinonide [Vanos] 1 gm TP BID #180 gm 09/27/22 - Allergies Allergies/Adverse Reactions: Allergies Allergy/AdvReac Type Severity Reaction Status Date / Time bee venom protein (honey bee) Allergy Anaphylaxis Verified 09/27/22 17:40 codeine [Codeine] Allergy Nausea Verified 09/27/22 17:40 Sulfa (Sulfonamide Allergy Hives Verified 09/27/22 17:40 Antibiotics) - Social History Does the pt smoke?: No Smoking Status: Never smoker Does the pt drink ETOH?: No Does the pt have substance abuse?: Yes - Immunizations Immunizations are current?: Yes - POLST Patient has POLST: No PD ED PE NORMAL - Vitals Vital signs reviewed: Yes - General General: Alert and oriented X 3, No acute distress - Derm Derm: Other (On the dorsum of both feet left worse than right at the level of the distal metatarsals and dorsal toes she has vesicular mildly erythematous rash.) - Neuro Neuro: Alert and oriented X 3, Normal speech Results - Vitals Vitals: Vital Signs - 24 hr 09/27/22 17:40 Temperature 36.5 C Heart Rate 78 Respiratory 16 Rate Blood Pressure 150/70 H O2 Saturation 100 Oxygen O2 Source Room air PD Medical Decision Making - ED course ED course: I suspect this is dyshidrotic eczema. We discussed what creams start with "F" and fluocinonide was familiar to her. Departure - Departure Disposition: 01 Home, Self Care Clinical Impression: Dyshidrotic eczema Condition: Good Record reviewed to determine appropriate education?: Yes Instructions: ED Dermatitis Atopic Eczema Prescriptions: Fluocinonide [Vanos] 1 gm TP BID #180 gm Comments: As discussed, I believe you have dyshidrotic eczema which is a not uncommon painful condition that is an inflammatory condition of the skin especially the feet. I am prescribing the cream that you are familiar with that has worked in the past which is appropriate, it is a high potency steroid. 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 Return if worse.
== END 2022-09-27 18:31 | disposition home or self-care (01) ==
LOC: ED 17:36
DX: L30.1 Dyshidrosis [pompholyx] (principal); E11.9 Type 2 diabetes mellitus without complications; Z79.85 Long-term (current) use of injectable non-insulin antidiabetic drugs; I10 Essential (primary) hypertension
CPT/HCPCS: 99282; 99284

== ENCOUNTER 2023-10-03 17:43 | Emergency (ER) | payer MEDICARE, MEDICAID ==
[2023-10-03 17:53] VITALS: BP 139/74; O2SAT 100
--- NOTE | 2023-10-03 18:17 | XRAY Report ---
PROCEDURE: Chest 2V INDICATIONS: cough TECHNIQUE: 2 views of the chest were acquired. COMPARISON: Chest radiograph 03/19/2018. FINDINGS: Surgical changes and devices: None. Lungs and pleura: No pleural effusions or pneumothorax. Redemonstration of 10 mm nodule in the right midlung zone, stable since 2018 and most consistent with a benign etiology. No focal airspace consol idation. Mediastinum: Mediastinal contours appear normal. Heart size is normal. Bones and chest wall: No suspicious bony lesions. Overlying soft tissues appear unremarkable. IMPRESSION: No acute cardiopulmonary process. Stable 10 mm nodule in the right midlung zone since 2018 most consistent with benign etiology. Reviewed by: Brianna Bialey MD on 10/03/2023 6:16 PM PST Approved by: Brianna Bailey MD on 10/03/2023 6:16 PM PST Station ID: [id number]
== END 2023-10-03 20:20 | disposition left against medical advice (07) ==
LOC: ED 17:43
DX: Z53.21 Procedure and treatment not carried out due to patient leaving prior to being seen by health care provider (principal)

== ENCOUNTER 2024-01-01 17:29 | Emergency (ER) | payer OTHER, MEDICARE, MEDICAID ==
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
--- NOTE | 2024-01-01 20:04 | CT Report ---
PROCEDURE: Head WO INDICATIONS: head inj TECHNIQUE: Noncontrast 4.5 mm thick angled axial sections acquired from the foramen magnum to the vertex. For r adiation dose reduction, the following was used: automated exposure control, adjustment of mA and/or kV according to patient size. COMPARISON: CT head 05/28/2019. FINDINGS: Image quality: Excellent. The ventricular system and cortical sulci demonstrate atrophy, consistent for patient's stated age. There are areas of hypodensity in the periventricular and subcortical white matter. There is no acut e intra or extra-axial fluid collection. No acute hemorrhage, mass lesion or midline shift. Brainst em is unremarkable. Globes are symmetrical. Sinuses are aerated. Osseous structures are intact. IMPRESSION: 1. No acute intracranial process. 2. Moderate atrophy and chronic microvascular ischemic changes. Reviewed by: Stephanie Meek MD on 01/01/2024 8:02 PM PDT Approved by: Stephanie Meek MD on 01/01/2024 8:02 PM PDT Station ID: [id number]
[2024-01-01] MEDS: DROPERIDOL 5 MG/2 ML VIAL IVP STA (20:13)
[2024-01-01] MEDS: KETOROLAC 15 MG/ML VIAL IVP STA (20:13)
[2024-01-01] MEDS: MECLIZINE 12.5 MG TABLET PO STA (20:13)
[2024-01-01] MEDS: SODIUM CHLORIDE 0.9% 1,000 ML IV STA (20:14)
[2024-01-01 20:50] VITALS: BP 150/84; O2SAT 99
== END 2024-01-01 21:14 | disposition home or self-care (01) ==
LOC: ED 17:29
DX: F07.81 Postconcussional syndrome (principal); V43.62XA Car passenger injured in collision with other type car in traffic accident, initial encounter; Y92.410 Unspecified street and highway as the place of occurrence of the external cause; I10 Essential (primary) hypertension; E78.00 Pure hypercholesterolemia, unspecified; E11.9 Type 2 diabetes mellitus without complications; Z79.84 Long term (current) use of oral hypoglycemic drugs; Z79.899 Other long term (current) drug therapy; Z79.82 Long term (current) use of aspirin; Z79.4 Long term (current) use of insulin; Z79.85 Long-term (current) use of injectable non-insulin antidiabetic drugs
CPT/HCPCS: 36415; 70450; 96374; 99284; A9270